=== PATIENT | male | born 1990 | race Caucasian/White ===

== ENCOUNTER 2020-01-30 11:46 | Emergency (ER) | payer OTHER, SELFPAY ==
--- NOTE | 2020-01-30 12:09 | ED.SKABFB ---
HPI - Skin/Abscess/Foreign Bdy General Chief complaint: Wound/Laceration Stated complaint: injury left arm Time Seen by Provider: 01/30/20 12:09 Source: patient and RN notes reviewed History of Present Illness HPI narrative: Patient is a 29-year-old male who presents the urgent care with complaints of a laceration to the left forearm. Patient states that he cut it with a box inspector just prior to arrival. Patient states that he is unsure when his last tetanus was but he does not wish to have the vaccine today. Denies of any other acute complaints or injuries. No acute distress noted. Patient read the plan of care. Related Data Home Medications Medication Instructions Recorded Confirmed No Home Medications 01/30/20 01/30/20 Allergies Allergy/AdvReac Type Severity Reaction Status Date / Time No Known Allergies Allergy Unverified 03/22/15 18:03 Review of Systems Review of Systems: Narrative: CONSTITUTIONAL: Denies fever, chills, or sweats. EYES: Denies visual changes, redness, or discharge. ENT: Denies rhinorrhea, congestion, sore throat, or otalgia. CARDIOVASCULAR: Denies chest pain, palpitations, or edema. RESPIRATORY: Denies cough or dyspnea. GASTROINTESTINAL: Denies abdominal pain, nausea, vomiting, or diarrhea. GENITOURINARY: Denies dysuria or hematuria. SKIN: Reports of a laceration to the left forearm MUSCULOSKELETAL: Denies back pain, joint pain, or myalgia. NEUROLOGIC: Denies headache, numbness, or weakness. All other systems reviewed are negative, except as documented in HPI. PMFSH Comments At the time of my signature, I reviewed and agree with the nursing past medical, surgical, social, and family history. There is no relevant family history pertinent to the patient complaint. Exam Narrative: Exam Narrative: GENERAL: This is a well-nourished, well-developed patient, in no apparent distress. HEAD: normocephalic, atraumatic. EYES: PERRL. Sclera clear/white. Vision is grossly intact. EARS: External ears normal NOSE: External nose normal with no obvious nasal discharge, nares without redness, no rhinorrhea. THROAT: Mucous membranes moist NECK: Neck supple SKIN: 0.25 cm puncture wound to the left forearm, bleeding controlled prior to arrival. Warm, intact with no suspicious lesions or rash, good texture and turgor. NEURO: awake, alert, and oriented to person, place and time. There were no obvious focal neurologic abnormalities. EXTREMITIES: No clubbing, cyanosis, or edema. Course Vital Signs Vital signs: Vital Signs Temperature 97.8 F 01/30/20 12:11 Pulse Rate 63 01/30/20 12:11 Respiratory Rate 16 01/30/20 12:11 Blood Pressure 140/63 01/30/20 12:11 Pulse Oximetry 100 01/30/20 12:11 Temperature 97.8 F 01/30/20 12:11 Pulse Rate 63 01/30/20 12:11 Respiratory Rate 16 01/30/20 12:11 Blood Pressure 140/63 01/30/20 12:11 Pulse Oximetry 100 01/30/20 12:11 Reviewed Procedures Laceration Laceration 1: Site: upper extremity Side (If applicable): left Size (cm): 0.5 Description: other (puncture) Local Anesthetic: none Pre-repair: irrigated ====== Skin Level ====== Skin layer closed with: dermabond and steri strips ====== Subcutaneous Layer ====== ====== Muscle Layer ====== ====== Tendon Layer ====== Dressin.25 puncture wound to the left forearm. Irrigated with [employer] normal saline. Wound closure with Dermabond and Steri-Strips. Patient tolerated well. Procedure successful. Patient did not want a suture placed. MDM - Skin/Abscess/Foreign Bdy MDM Narrative Medical decision making narrative: Advised the patient not to remove the Dermabond or Steri-Strips. Allow them to fall off on their own. Do not scrub directly over the wound. Dermabond typically last approximately 5 to 7 days. May cover with a bandage after 1 hour of leaving the facility. Clean with plain Dial soap and water wi
[2020-01-30 12:11] VITALS: BP 140/63; PULSE 63; RESP 16; TEMP 36.6; O2SAT 100
--- NOTE | 2020-01-30 12:27 | PC.NURSE ---
doll surgeon in to do wound irrigation, skin glue and steri strips.
== END 2020-01-30 12:33 | disposition home or self-care (01) ==
PROVIDERS: Emergency Provider Nurse Practitioner Family
DX: S51.832A Puncture wound without foreign body of left forearm, initial encounter (principal); W27.0XXA Contact with workbench tool, initial encounter
CPT/HCPCS: 12001; 99202; G0463